=== PATIENT | female | born 1965 | race African-American/Black ===

== ENCOUNTER 2020-11-23 13:15 | Emergency (ER) | payer MEDICAID ==
[~2020-11-23] VITALS: Ht 165.1 cm; Wt 78.0 kg
[2020-11-23] MEDS ORDERED: ACETAMINOPHEN 500MG TABLET PO ONE (14:15)
[2020-11-23] MEDS ORDERED: IBUPROFEN 800MG TABLET PO ONE (14:15)
[2020-11-23] MEDS ORDERED: NAPR-681 MT (15:45)
[2020-11-23] MEDS ORDERED: T3 PO (15:45)
[2020-11-23] MEDS ORDERED: ACETAMINOPHEN WITH CODEINE 300/30MG TABLET PO NR (15:45)
[2020-11-23 16:03] VITALS: BP 115/80
== END 2020-11-23 16:09 | disposition home or self-care (01) ==
LOC: ER 13:15
DX: M54.9 Dorsalgia, unspecified (principal); Z88.0 Allergy status to penicillin; Z88.5 Allergy status to narcotic agent
CPT/HCPCS: 72050; 99284